=== PATIENT | male | born 1945 | race Caucasian/White ===

== ENCOUNTER 2018-10-26 09:23 | Inpatient (IN) ==
[2018-10-26] MEDS ORDERED: metroNIDAZOLE INJ 500 MG in PREMIX 1 EACH IV STA (10:46)
[2018-10-26] MEDS ORDERED: PIPERACILLIN/TAZOBACTAM 3,375 MG in SODIUM CHLORIDE 0.9% 100 ML IV STA (10:46)
[2018-10-26] MEDS ORDERED: SODIUM CHLORIDE 0.9% 1,000 ML IV STA ×2 (10:46→12:03)
[2018-10-26 10:55] LABS: Basophils % 0.3 % (0.0-0.8); Eosinophils % 0.1 % (0.00-10.9); Hematocrit 52.3 VOL% (42.0-52.0); Hemoglobin 16.8 GM/DL (14.0-18.0); Immature Granulocytes % 0.4 %; Immature Granulocytes Absolute 0.06 #; Lymphocytes # 0.5 10*3/uL (1.4-4.0); Lymphocytes % 3.6 % (21.2-54.2); Mean Corpuscular HGB Conc 32.1 GM/DL (32-36); Mean Corpuscular Hemoglobin 29 PG (27-34); Mean Corpuscular Volume 88.8 FL (87-102); Mean Platelet Volume 11.2 FL (9.6-12.0); Monocytes # 0.7 10*3/uL (0.11-0.8); Monocytes % 4.7 % (1.7-12.7); Neutrophils % 90.9 % (38.7-73.9); Platelet Count 217 T/CUMM (130-400); Red Blood Count 5.89 MC/CUMM (3.8-5.5); Red Cell Distribution Width 13.4 % (9.3-17.3); White Blood Count 14.3 T/CUMM (4-12)
[2018-10-26 11:06] LABS: Albumin 4.3 G/DL (3.4-5.0); Bilirubin,Total 0.8 MG/DL (0.2-1.0); Calcium 8.8 MG/DL (8.5-10.1); Osmolality,Calculated 271.2 MOS/KG (273-304); Potassium 3.7 MMOL/L (3.5-5.1); Total Protein 8.2 G/DL (6.4-8.3)
[2018-10-26 11:14] LABS: Band Neutrophils 6 % (0-10); Hypochromasia 1+; Lymphocytes 3 % (20-55); Platelet Estimate Normal; Segmented Neutrophils 82 % (50-85); Total Cells Counted 100
[2018-10-26 12:30] LABS: Apearance,Urine CLEAR (Clear); Bilirubin,Urine Negative (Negative); Blood, Urine Moderate mg/dL (Negative); Glucose,Urine (UA) Negative (Negative); Ketones,Urine Negative (Negative); Mucus,Urine Occasional /LPF (Occasional); Nitrite,Urine Negative (Negative); Protein,Urine Negative; RBC,Urine 3 /HPF (0-4); Urine Color Straw (Yellow); Urine Specific Gravity 1.042 (1.001-1.035); Urine Urobilinogen < 2.0 EU/DL (0.2-1.0); WBC,Urine <1 /HPF (0-6)
[2018-10-26] MEDS ORDERED: ONDANSETRON 4 MG/2 ML VIAL IV PRN (13:20)
[2018-10-26] MEDS ORDERED: ACETAMINOPHEN 325 MG TABLET PO PRN (13:20)
[2018-10-26] MEDS ORDERED: DEXTROSE 5% NACL 0.45% 1,000 ML IV SCH (13:30)
[2018-10-26] MEDS ORDERED: ENOXAPARIN 40 MG/0.4 ML SYRINGE SUBCUT SCH (13:30)
[2018-10-26 13:39] LABS: INR 2.5
[2018-10-26 13:41] LABS: PT Patient Result 27.4 SECS
[2018-10-26 13:55] LABS: Risk Ratio 3.27; Thyroid Stimulating Hormone 1.15 uIU/ml (0.358-3.74); VLDL CHOLESTEROL 27.6 MG/DL
[2018-10-26] MEDS ORDERED: SODIUM CHLORIDE 0.9% 1,000 ML IV ONE (15:27)
[2018-10-26] MEDS: CIPROFLOXACIN INJ 400 MG in PREMIX 1 EACH IV SCH (15:51)
[2018-10-26] MEDS: SODIUM CHLORIDE 0.9% 1,000 ML IV SCH (17:21)
[2018-10-26] MEDS: metroNIDAZOLE INJ 500 MG in PREMIX 1 EACH IV SCH (18:47)
[2018-10-26] MEDS: LACOSAMIDE 50 MG TABLET PO SCH (21:30)
[2018-10-27] MEDS: CIPROFLOXACIN INJ 400 MG in PREMIX 1 EACH IV SCH ×2 (01:26→12:35)
[2018-10-27] MEDS: metroNIDAZOLE INJ 500 MG in PREMIX 1 EACH IV SCH ×2 (03:09→10:35)
[2018-10-27] MEDS: SODIUM CHLORIDE 0.9% 1,000 ML IV SCH ×2 (04:19→08:32)
[2018-10-27 06:38] LABS: Basophils % 0.3 % (0.0-0.8); Eosinophils % 0.1 % (0.00-10.9); Hematocrit 42.7 VOL% (42.0-52.0); Immature Granulocytes % 0.4 %; Immature Granulocytes Absolute 0.05 #; Lymphocytes # 1.1 10*3/uL (1.4-4.0); Lymphocytes % 8.6 % (21.2-54.2); Mean Corpuscular HGB Conc 32.6 GM/DL (32-36); Mean Corpuscular Hemoglobin 29 PG (27-34); Mean Corpuscular Volume 87.7 FL (87-102); Mean Platelet Volume 11.8 FL (9.6-12.0); Monocytes # 0.8 10*3/uL (0.11-0.8); Monocytes % 6.1 % (1.7-12.7); Neutrophils # 10.9 10*3/uL (1.4-7.4); Neutrophils % 84.5 % (38.7-73.9); Red Blood Count 4.87 MC/CUMM (3.8-5.5); Red Cell Distribution Width 13.8 % (9.3-17.3); White Blood Count 12.9 T/CUMM (4-12)
[2018-10-27 06:50] LABS: Hemoglobin 13.9 GM/DL (14.0-18.0)
[2018-10-27 06:51] LABS: Platelet Count 165 T/CUMM (130-400)
[2018-10-27 06:53] LABS: INR 2.7
[2018-10-27 06:54] LABS: Calcium 7.4 MG/DL (8.5-10.1); Osmolality,Calculated 275.7 MOS/KG (273-304); Potassium 3.1 MMOL/L (3.5-5.1)
[2018-10-27 07:01] LABS: PT Patient Result 28.6 SECS
[2018-10-27] MEDS ORDERED: POTASSIUM CHLORIDE 20 MEQ TABLET PO ONE ×2 (07:54→11:00)
[2018-10-27 08:15] LABS: Apearance,Urine Slightly Hazy (Clear); Bilirubin,Urine Negative (Negative); Blood, Urine Large mg/dL (Negative); Glucose,Urine (UA) Negative (Negative); Ketones,Urine Negative (Negative); Nitrite,Urine Negative (Negative); Protein,Urine Negative; RBC,Urine 1 /HPF (0-4); Urine Color Yellow (Yellow); Urine Specific Gravity 1.017 (1.001-1.035); Urine Urobilinogen < 2.0 EU/DL (0.2-1.0); WBC,Urine 1 /HPF (0-6)
[2018-10-27] MEDS: PANTOPRAZOLE 40 MG TABLET PO SCH (08:31)
[2018-10-27] MEDS: LACOSAMIDE 50 MG TABLET PO SCH ×2 (08:31→20:19)
[2018-10-27] MEDS: LEVOTHYROXINE 75 MCG TABLET PO SCH (08:31)
[2018-10-27] MEDS: metroNIDAZOLE 500 MG TABLET PO SCH ×2 (14:44→20:19)
[2018-10-27] MEDS ORDERED: WARFARIN 2.5 MG TABLET PO SCH (18:00)
[2018-10-27] MEDS ORDERED: WARFARIN 5 MG TABLET PO SCH (18:00)
[2018-10-27] MEDS: CIPROFLOXACIN 500 MG TABLET PO SCH (20:19)
[2018-10-28 04:56] LABS: Basophils % 0.2 % (0.0-0.8); Eosinophils % 0.4 % (0.00-10.9); Hematocrit 39.4 VOL% (42.0-52.0); Hemoglobin 12.8 GM/DL (14.0-18.0); Immature Granulocytes % 0.4 %; Immature Granulocytes Absolute 0.04 #; Lymphocytes # 0.7 10*3/uL (1.4-4.0); Lymphocytes % 7.2 % (21.2-54.2); Mean Corpuscular HGB Conc 32.5 GM/DL (32-36); Mean Corpuscular Hemoglobin 29 PG (27-34); Mean Corpuscular Volume 87.9 FL (87-102); Mean Platelet Volume 11.4 FL (9.6-12.0); Monocytes # 0.7 10*3/uL (0.11-0.8); Monocytes % 6.9 % (1.7-12.7); Neutrophils # 8.7 10*3/uL (1.4-7.4); Neutrophils % 84.9 % (38.7-73.9); Platelet Count 135 T/CUMM (130-400); Red Blood Count 4.48 MC/CUMM (3.8-5.5); Red Cell Distribution Width 13.6 % (9.3-17.3); White Blood Count 10.2 T/CUMM (4-12)
[2018-10-28 05:17] LABS: Partial Thromboplastin Time 38.8 SECS (0-40)
[2018-10-28 05:22] LABS: INR 2.8
[2018-10-28 05:25] LABS: Calcium 7.5 MG/DL (8.5-10.1); Potassium 3.7 MMOL/L (3.5-5.1)
[2018-10-28 05:27] LABS: PT Patient Result 29.8 SECS
[2018-10-28] MEDS: LEVOTHYROXINE 75 MCG TABLET PO SCH (07:37)
[2018-10-28] MEDS ORDERED: POTASSIUM CHLORIDE 20 MEQ TABLET PO PRN (07:54)
[2018-10-28] MEDS: PANTOPRAZOLE 40 MG TABLET PO SCH (08:46)
[2018-10-28] MEDS: metroNIDAZOLE 500 MG TABLET PO SCH (08:46)
[2018-10-28] MEDS: CIPROFLOXACIN 500 MG TABLET PO SCH (08:46)
[2018-10-28] MEDS: LACOSAMIDE 50 MG TABLET PO SCH (08:46)
[2018-10-28 11:17] VITALS: BP 156/71
[2018-10-28] MEDS ORDERED: WARFARIN 5 MG TABLET PO SCH (18:00)
[2018-10-30] MEDS ORDERED: WARFARIN 7.5 MG TABLET PO SCH (18:00)
== END 2018-10-28 11:15 | disposition home or self-care (01) | DRG 392 ==
LOC: N.ED 09:23 → N.EDINP 13:17 → N.5E 16:33
PROVIDERS: ADMIT Internal Medicine; ATTEND Internal Medicine

== ENCOUNTER 2018-11-28 05:56 | Inpatient (IN) ==
[2018-11-22 14:25] LABS: Basophils % 0.4 % (0.0-0.8); Eosinophils # 0.1 10*3/uL (0.0-0.87); Eosinophils % 0.7 % (0.00-10.9); Hematocrit 45.4 VOL% (42.0-52.0); Hemoglobin 14.8 GM/DL (14.0-18.0); Immature Granulocytes % 0.4 %; Immature Granulocytes Absolute 0.04 #; Lymphocytes # 1.6 10*3/uL (1.4-4.0); Lymphocytes % 15.6 % (21.2-54.2); Mean Corpuscular HGB Conc 32.6 GM/DL (32-36); Mean Corpuscular Hemoglobin 29 PG (27-34); Mean Corpuscular Volume 87.3 FL (87-102); Monocytes # 0.8 10*3/uL (0.11-0.8); Monocytes % 7.8 % (1.7-12.7); Neutrophils # 7.9 10*3/uL (1.4-7.4); Neutrophils % 75.1 % (38.7-73.9); Platelet Count 200 T/CUMM (130-400); Red Cell Distribution Width 13.8 % (9.3-17.3); White Blood Count 10.5 T/CUMM (4-12)
[2018-11-22 14:37] LABS: Calcium 8.1 MG/DL (8.5-10.1); Osmolality,Calculated 276.8 MOS/KG (273-304); Potassium 3.8 MMOL/L (3.5-5.1)
[2018-11-28] MEDS ORDERED: LACTATED RINGERS 1,000 ML IV SCH (06:00)
[2018-11-28] MEDS ORDERED: ERTAPENEM 1,000 MG VIAL ONE (06:10)
[2018-11-28] MEDS ORDERED: ALVIMOPAN 12 MG CAPSULE ONE (06:10)
[2018-11-28] MEDS ORDERED: ERTAPENEM 1,000 MG in SODIUM CHLORIDE 0.9% 100 ML IV ONE (06:30)
[2018-11-28] MEDS ORDERED: ALVIMOPAN 12 MG CAPSULE PO ONE (06:30)
[2018-11-28] MEDS ORDERED: TISSUE ADHESIVE 1 EACH APPLICATOR TOP ONE (06:32)
[2018-11-28] MEDS ORDERED: INDOCYANINE GREEN 25 MG VIAL IV ONE (06:32)
[2018-11-28 06:51] LABS: PT Patient Result 11.2 SECS; Partial Thromboplastin Time 26.6 SECS (0-40)
[2018-11-28] MEDS ORDERED: ONDANSETRON 4 MG/2 ML VIAL IV PRN ×2 (10:39→11:55)
[2018-11-28] MEDS ORDERED: PROPOFOL 200 MG/20 ML VIAL IV ONE (10:54)
[2018-11-28] MEDS ORDERED: SEVOFLURANE 1 UNIT/15 MINUTE INH ONE (10:55)
[2018-11-28] MEDS ORDERED: DEXAMETHASONE 4 MG/1 ML VIAL ONE (10:55)
[2018-11-28] MEDS ORDERED: MIDAZOLAM 2 MG/2 ML VIAL ONE (10:55)
[2018-11-28] MEDS ORDERED: ONDANSETRON 4 MG/2 ML VIAL ONE ×2 (10:55→10:56)
[2018-11-28] MEDS ORDERED: LABETALOL 100 MG/20 ML VIAL IV ONE (10:55)
[2018-11-28] MEDS ORDERED: ACETAMINOPHEN 1,000 MG/100 ML VIAL IV ONE (10:56)
[2018-11-28] MEDS ORDERED: ROCURONIUM 100 MG/10 ML VIAL IV ONE (10:56)
[2018-11-28] MEDS ORDERED: HYDROmorphone 2 MG/1 ML VIAL ONE (10:56)
[2018-11-28] MEDS ORDERED: PHENYLEPHRINE 1 MG/10 ML SYRINGE IV ONE (10:56)
[2018-11-28] MEDS ORDERED: ETOMIDATE 40 MG/20 ML VIAL IV ONE (10:56)
[2018-11-28] MEDS ORDERED: LACTATED RINGERS 1,000 ML IV ONE (10:56)
[2018-11-28] MEDS ORDERED: NEOSTIGMINE 10 MG/10 ML VIAL ONE (10:56)
[2018-11-28] MEDS: HYDROmorphone 2 MG/1 ML VIAL IV PRN ×2 (11:02→11:11)
[2018-11-28] MEDS ORDERED: HYDROmorphone 2 MG/1 ML VIAL IV PRN (11:55)
[2018-11-28] MEDS ORDERED: PROMETHAZINE 25 MG/1 ML VIAL IM PRN (11:55)
[2018-11-28 12:09] LABS: Basophils % 0.2 % (0.0-0.8); Eosinophils % 0.1 % (0.00-10.9); Hematocrit 46.3 VOL% (42.0-52.0); Hemoglobin 14.6 GM/DL (14.0-18.0); Immature Granulocytes % 0.4 %; Immature Granulocytes Absolute 0.05 #; Lymphocytes # 0.6 10*3/uL (1.4-4.0); Lymphocytes % 4.3 % (21.2-54.2); Mean Corpuscular HGB Conc 31.5 GM/DL (32-36); Mean Corpuscular Hemoglobin 29 PG (27-34); Mean Corpuscular Volume 90.4 FL (87-102); Mean Platelet Volume 10.5 FL (9.6-12.0); Monocytes # 0.3 10*3/uL (0.11-0.8); Monocytes % 2.2 % (1.7-12.7); Neutrophils # 12.4 10*3/uL (1.4-7.4); Neutrophils % 92.8 % (38.7-73.9); Platelet Count 181 T/CUMM (130-400); Red Blood Count 5.12 MC/CUMM (3.8-5.5); Red Cell Distribution Width 13.9 % (9.3-17.3); White Blood Count 13.3 T/CUMM (4-12)
[2018-11-28 12:28] LABS: Osmolality,Calculated 278.5 MOS/KG (273-304); Potassium 4.4 MMOL/L (3.5-5.1)
[2018-11-28 12:39] LABS: Band Neutrophils 19 % (0-10); Lymphocytes 3 % (20-55); Platelet Estimate Normal; Segmented Neutrophils 78 % (50-85); Total Cells Counted 100
[2018-11-28 12:40] LABS: Anisocytosis 1+; Macrocytosis Slight
[2018-11-28] MEDS: LACTATED RINGERS 1,000 ML IV SCH ×2 (16:44→23:35)
[2018-11-28] MEDS: KETOROLAC 15 MG/1 ML VIAL IV SCH ×2 (16:45→18:59)
[2018-11-28] MEDS: ALVIMOPAN 12 MG CAPSULE PO SCH (20:30)
[2018-11-28] MEDS: LACOSAMIDE 50 MG TABLET PO SCH (20:30)
[2018-11-29] MEDS: KETOROLAC 15 MG/1 ML VIAL IV SCH ×2 (02:03→05:09)
[2018-11-29 04:33] LABS: Basophils % 0.1 % (0.0-0.8); Hematocrit 35.3 VOL% (42.0-52.0); Hemoglobin 11.8 GM/DL (14.0-18.0); Immature Granulocytes % 0.4 %; Immature Granulocytes Absolute 0.06 #; Lymphocytes # 1.2 10*3/uL (1.4-4.0); Lymphocytes % 8.4 % (21.2-54.2); Mean Corpuscular HGB Conc 33.4 GM/DL (32-36); Mean Corpuscular Hemoglobin 29 PG (27-34); Mean Corpuscular Volume 87.8 FL (87-102); Mean Platelet Volume 11.3 FL (9.6-12.0); Monocytes # 1.1 10*3/uL (0.11-0.8); Monocytes % 8.2 % (1.7-12.7); Neutrophils # 11.4 10*3/uL (1.4-7.4); Neutrophils % 82.9 % (38.7-73.9); Platelet Count 156 T/CUMM (130-400); Red Blood Count 4.02 MC/CUMM (3.8-5.5); Red Cell Distribution Width 13.9 % (9.3-17.3); White Blood Count 13.7 T/CUMM (4-12)
[2018-11-29] MEDS ORDERED: ENOXAPARIN 40 MG/0.4 ML SYRINGE SUBCUT SCH (05:00)
[2018-11-29 05:04] LABS: Calcium 7.6 MG/DL (8.5-10.1); Osmolality,Calculated 274.7 MOS/KG (273-304); Potassium 3.7 MMOL/L (3.5-5.1)
[2018-11-29] MEDS ORDERED: LEVOTHYROXINE 75 MCG TABLET PO SCH (07:30)
[2018-11-29] MEDS: LACOSAMIDE 50 MG TABLET PO SCH (08:12)
[2018-11-29] MEDS: ALVIMOPAN 12 MG CAPSULE PO SCH (08:12)
[2018-11-29] MEDS ORDERED: WARFARIN 5 MG TABLET PO SCH (09:00)
[2018-11-29] MEDS: LACTATED RINGERS 1,000 ML IV SCH (10:07)
[2018-11-29 11:04] VITALS: BP 116/62
== END 2018-11-29 12:35 | disposition home or self-care (01) | DRG 331 ==
LOC: N.SDSINP 05:56 → N.OR 05:56 → N.SDSINP 05:59 → EDSTATUS 07:30 → N.3E 10:06 → N.SDSINP 10:06 → EDSDCBED 10:06 → N.3E 11:24 → N.OR 11-29 12:35 → N.3E 12-01 09:48
PROVIDERS: ADMIT Surgery; ATTEND Surgery